=== PATIENT | male | born 1975 | race Hispanic/Latino ===

== ENCOUNTER → 2021-11-01 10:59 | Outpatient (CLI) | payer OTHER, SELFPAY ==
--- NOTE | 2021-11-01 11:06 | DI.RAD.S_ITS ---
PROCEDURE: XR SHOULDER RT MIN 2V INDICATIONS: RIGHT SHOULDER, WRIST, AND KNEE PAIN TECHNIQUE: 3 views of the shoulder were acquired. COMPARISON: None. FINDINGS: Bones: No fractures or dislocations. No suspicious bony lesions. Visualized ribs appear intact. Mild glenohumeral joint degenerative change. Soft tissues: No suspicious soft tissue calcifications. IMPRESSION: Mild glenohumeral joint degenerative change. No evidence acute bony abnormality of the right shoulder. If clinical suspicion and/or symptoms persist, further assessment with repeat plain films, or advanced imaging (e.g., CT, MRI, or bone scan) may be helpful for further assessment. Dictated by: Clifton Guerra M.D. on 11/01/2021 at 13:55 Approved by: Clifton Guerra M.D. on 11/01/2021 at 13:57
--- NOTE | 2021-11-01 11:06 | DI.RAD.S_ITS ---
PROCEDURE: XR WRIST RT MIN 3V INDICATIONS: Pain TECHNIQUE: Four views of the wrist were acquired. COMPARISON: None. FINDINGS: Bones: No fractures or dislocations. No suspicious bony lesions. Scaphoid view: Intact scaphoid. Soft tissues: No suspicious soft tissue calcifications. IMPRESSION: Normal right wrist. Dictated by: Ana Paula Santos M.D. on 11/01/2021 at 15:21 Approved by: Ana Paula Santos M.D. on 11/01/2021 at 15:22
--- NOTE | 2021-11-01 11:06 | DI.RAD.S_ITS ---
PROCEDURE: XR KNEE RT 3V INDICATIONS: RIGHT SHOULDER, WRIST, AND KNEE PAIN TECHNIQUE: Three views of the knee were acquired. COMPARISON: None. FINDINGS: Bones: No fractures or dislocations. No suspicious bony lesions. Soft tissues: No joint effusion. No suspicious soft tissue calcifications. IMPRESSION: Intact right knee. Dictated by: Ana Paula Santos M.D. on 11/01/2021 at 15:20 Approved by: Ana Paula Santos M.D. on 11/01/2021 at 15:21
== END ==
PROVIDERS: Referring Provider Internal Medicine Cardiovascular Disease; Visit Provider Internal Medicine Cardiovascular Disease
DX: M25.511 Pain in right shoulder (principal); M25.561 Pain in right knee; M25.531 Pain in right wrist
CPT/HCPCS: 73030; 73110; 73562